=== PATIENT | female | born 1985 | race African-American/Black ===

== ENCOUNTER 2020-11-05 21:07 | Emergency (ER) | payer SELFPAY ==
[~2020-11-05] VITALS: Ht 167.6 cm; Wt 73.3 kg
[2020-11-05 21:18] VITALS: BP 137/88
[2020-11-05] MEDS ORDERED: HYDR-2155 PO (22:21)
== END 2020-11-05 22:25 | disposition home or self-care (01) ==
LOC: ER 21:07
DX: S93.401A Sprain of unspecified ligament of right ankle, initial encounter (principal); X50.9XXA Other and unspecified overexertion or strenuous movements or postures, initial encounter; Y93.89 Activity, other specified; Y92.89 Other specified places as the place of occurrence of the external cause; Y99.8 Other external cause status
CPT/HCPCS: 73610; 99283